=== PATIENT | female | born 1945 | race Two or more races ===

== ENCOUNTER 2022-07-22 07:59 | Outpatient (CLI) | payer OTHER | END 2022-07-22 08:05 | disposition home or self-care (01) | LOC: RX STUDY 07:59 | PROVIDERS: ATTEND Otolaryngology | DX: R13.14 Dysphagia, pharyngoesophageal phase (principal) ==

== ENCOUNTER 2025-01-04 14:01 | Outpatient (CLI) | payer OTHER | END 2025-01-04 14:16 | disposition home or self-care (01) | LOC: SONOGRAMA 14:01 | PROVIDERS: ATTEND Internal Medicine | DX: M65.841 Other synovitis and tenosynovitis, right hand (principal); M65.831 Other synovitis and tenosynovitis, right forearm ==